=== PATIENT | female | born 1975 | race Caucasian/White ===

== ENCOUNTER 2022-12-26 14:11 | Emergency (ER) | payer OTHER ==
[~2022-12-26] VITALS: Ht 162.5 cm; Wt 55.8 kg
[2022-12-26 14:50] LABS: BILIRUBIN Negative (Negative); BLOOD Negative (Negative); CLARITY Clear (Clear); COLOR Yellow (Yellow); GLUCOSE Negative (Negative); KETONE Trace (Negative); LEUKO ESTERASE Negative (Negative); NITRITE Negative (Negative); SPECIFIC GRAVITY 1.015 (1.001-1.030); UROBILINOGEN 0.2 E.U./dl (0.0-1.0)
[2022-12-26 14:52] LABS: BASO % 0.1 % (0.0-1.0); EOS % 0.3 % (1.0-4.0); HEMATOCRIT 37.2 % (37.0-47.0); LYMPH # 1.2 10*3/uL (1.3-4.4); LYMPH % 11.7 % (27.0-41.0); MEAN CELL VOLUME 91.9 fl (81.0-99.0); MEAN CORPUSCULAR HGB 31.4 pg (27.0-31.0); MEAN CORPUSCULAR HGB CONC 34.1 g/dl (33.0-37.0); MEAN PLATELET VOLUME 10.5 fl (9.6-12.3); MONO # 0.3 10*3/uL (0.1-1.0); MONO % 2.8 % (3.0-9.0); NEUT # 8.7 10*3/uL (2.3-7.9); NEUT % 84.8 % (47.0-73.0); PLATELET COUNT AUTOMATED 314 10*3/uL (130-400); RED BLOOD COUNT 4.05 10*6/uL (4.10-5.10); RED CELL DISTRI WIDTH 11.9 % (0-14.5); WHITE BLOOD COUNT 10.3 10*3/uL (4.8-10.8)
[2022-12-26 14:58] LABS: BACTERIA 1+; MUCOUS 1+; RBC 0-2 rbc/hpf (0-2)
[2022-12-26 15:03] LABS: ACT PARTIAL THROMBO TIME 25.6 SECONDS (20.0-32.1)
[2022-12-26 15:15] LABS: ALKALINE PHOSPHATASE 66 U/L (46-116); BUN 10 mg/dl (9-23); CHLORIDE 108 mmol/L (98-107); LIPASE 42 U/L (12-53); POTASSIUM 3.4 mmol/L (3.4-5.1); TOTAL PROTEIN 7.3 gm/dL (6.0-8.0)
[2022-12-26 15:19] LABS: SGPT/ALT < 7 U/L (10-49)
[2022-12-26] MEDS ORDERED: REGLAN10 M1 PO (15:38)
[2022-12-26] MEDS ORDERED: OCUFLOX 0.3% 5 M5 ML OT (15:47)
== END 2022-12-26 16:04 | disposition home or self-care (01) ==
LOC: ED 14:11
PROVIDERS: Internal Medicine
DX: H72.92 Unspecified perforation of tympanic membrane, left ear (principal)